=== PATIENT | female | born 1955 | race Caucasian/White ===

== ENCOUNTER 2016-10-22 19:05 | Observation (INO) | payer OTHER ==
[~2016-10-22] VITALS: Ht 170.2 cm; Wt 60.0 kg
[~2016-10-22 19:05] MED LIST: ALBU18HF INH; ALBU8.5H3 INH; ASPI-496 PO; ASPI-621 PO; ASPI325T4 PO; DOCU-30 PO; FLUT1DIS3 INH; FURO20TA3 PO; HYDR-3240 PO; IVAB5TAB PO; LEVO100T PO; LEVO100T5 PO; LISI5TAB7 PO; METO25TA35 PO; METO25TA91 PO; PRAV40TA2 PO; SPIR25TA PO; SPIR25TA3 PO; TIOT18CA INH; TIOT4MIS3 INH; VALA1000 PO; VICODIN PO; Vicodin
[2016-10-22 20:09] LABS: BLOOD UREA NITROGEN 12 mg/dL (7-18)
[2016-10-22 20:55] LABS: ASPARTATE AMINO TRANSFERASE 14 U/L (15-37)
[2016-10-22 20:57] LABS: IS PT STATUS REG ER OR PRE ER? YES
[2016-10-22] MEDS ORDERED: SODIUM CHLORIDE 0.9% 1,000ML IVBOLUS ONE (22:00)
[2016-10-23] MEDS ORDERED: TIOT4MIS5 INH (00:27)
[2016-10-23] MEDS ORDERED: FLUT1DIS3 INH (00:29)
[2016-10-23] MEDS ORDERED: SULF1TAB24 PO (00:31)
[2016-10-23] MEDS ORDERED: IVAB7.5T PO (00:34)
[2016-10-23] MEDS ORDERED: ASPI-496 PO (00:36)
[2016-10-23] MEDS ORDERED: SPIR25TA3 PO (00:42)
[2016-10-23 01:09] VITALS: BP 126/73
[2016-10-23] MEDS ORDERED: POLYETHYLENE GLYCOL 17 GM PACKET PO PRN (01:30)
[2016-10-23] MEDS ORDERED: hydrALAzine 20 MG/ML, 1ML IVPush PRN (01:30)
[2016-10-23] MEDS ORDERED: DOCUSATE 100 MG CAPSULE PO PRN (01:30)
[2016-10-23] MEDS ORDERED: ONDANSETRON ODT 4 MG PO PRN (01:30)
[2016-10-23] MEDS ORDERED: TRAZODONE 50MG TABLET PO PRN (01:30)
[2016-10-23] MEDS ORDERED: BISACODYL 10 MG SUPP PR PRN (01:30)
[2016-10-23] MEDS ORDERED: ACETAMINOPHEN 325 MG TABLET PO PRN (01:30)
[2016-10-23] MEDS: SODIUM CHLORIDE 0.9% 1,000 ML IV SCH ×2 (01:54→11:12)
[2016-10-23] MEDS: HEPARIN 5,000 UNITS/ML, 1ML SQ SCH ×2 (01:54→08:41)
[2016-10-23 02:00] VITALS: BP 123/83
[2016-10-23] MEDS ORDERED: METOPROLOL SUCCINATE 25 MG TAB.ER.24H PO PRN (02:00)
[2016-10-23] MEDS ORDERED: LISINOPRIL 5 MG TABLET PO PRN (02:00)
[2016-10-23 02:37] LABS: BLOOD UREA NITROGEN 10 mg/dL (7-18)
[2016-10-23 02:42] LABS: IS PT STATUS REG ER OR PRE ER? NO
[2016-10-23] MEDS ORDERED: LEVOTHYROXINE 100 MCG TABLET PO SCH (06:00)
[2016-10-23 07:30] VITALS: BP 107/67
[2016-10-23 08:47] LABS: IS PT STATUS REG ER OR PRE ER? NO
[2016-10-23] MEDS ORDERED: IVABRADINE HCL PO SCH (09:00)
[2016-10-23] MEDS ORDERED: ASPIRIN 81 MG TABLET EC PO SCH (09:00)
[2016-10-23] MEDS ORDERED: Tiotropium Bromide (Spiriva Respimat) INH SCH (09:00)
[2016-10-23] MEDS ORDERED: SALMETEROL INH SCH (09:00)
[2016-10-23] MEDS ORDERED: FLUTICASONE INH SCH (09:00)
[2016-10-23] MEDS ORDERED: SPIRONOLACTONE 25 MG TABLET PO SCH (09:00)
[2016-10-23] MEDS ORDERED: SULFAMETH./TRIMETHOPRIM DS 800MG/160MG TABLET PO SCH (09:00)
[2016-10-23] MEDS ORDERED: PRAVASTATIN 40 MG TABLET PO SCH (21:00)
== END 2016-10-23 15:05 | disposition home or self-care (01) ==
LOC: ED 20:32 → EDIP 22:03 → INTOOBSV 22:03 → 5SO 10-23 00:16 → DCLOUNGE 10-23 14:34
PROVIDERS: ADMIT Internal Medicine; ATTEND Internal Medicine
DX: R07.89 Other chest pain (principal); N39.0 Urinary tract infection, site not specified; D72.828 Other elevated white blood cell count; R79.89 Other specified abnormal findings of blood chemistry; J44.9 Chronic obstructive pulmonary disease, unspecified; E78.5 Hyperlipidemia, unspecified; E03.9 Hypothyroidism, unspecified; I50.22 Chronic systolic (congestive) heart failure; I27.2 Other secondary pulmonary hypertension; Z99.81 Dependence on supplemental oxygen; Z95.0 Presence of cardiac pacemaker; Z90.710 Acquired absence of both cervix and uterus
CPT/HCPCS: 36415; 71010; 80048; 80053; 81001; 83880; 84439; 84443; 84484; 85025; 85610; 85730; 87086; 93005; 96360; 96361; 96372; 99285; G0378; J1644; J7030

== ENCOUNTER → 2017-12-10 | Outpatient (CLI) | payer OTHER ==
[~2017-12-10] MED LIST changes: -ALBU8.5H3 INH; +ALBU8.5H8 INH; +ASPI325T17 PO; -ASPI325T4 PO; +DOCU-131 PO; -DOCU-30 PO; +IVAB7.5T PO; -SPIR25TA3 PO; +SPIR25TA5 PO; +SULF1TAB24 PO; +TIOT4MIS5 INH
== END | disposition home or self-care (01) ==
LOC: CFH 15:01
PROVIDERS: ATTEND Internal Medicine Cardiovascular Disease
DX: I08.1 Rheumatic disorders of both mitral and tricuspid valves (principal); I42.9 Cardiomyopathy, unspecified; E78.5 Hyperlipidemia, unspecified; I10 Essential (primary) hypertension; J44.9 Chronic obstructive pulmonary disease, unspecified; Z87.891 Personal history of nicotine dependence
CPT/HCPCS: 93306

== ENCOUNTER 2018-03-06 21:09 | Emergency (ER) | payer OTHER ==
[~2018-03-06] VITALS: Ht 170.2 cm; Wt 59.3 kg
[2018-03-06] MEDS ORDERED: ALBUTEROL/IPRATROPIUM 2.5MG/0.5MG, 3 ML ONE (21:51)
[2018-03-06] MEDS ORDERED: ALBUTEROL/IPRATROPIUM 2.5MG/0.5MG, 3 ML NPPB ONE (22:00)
[2018-03-06 22:01] LABS: BASOPHILS # (AUTO) 0.03 x10^3/uL (0-0.1); BASOPHILS % (AUTO) 0 % (0-1); EOSINOPHILS # (AUTO) 0.28 x10^3/uL (0-0.4); EOSINOPHILS % (AUTO) 2 % (1-7); LYMPHOCYTES # (AUTO) 0.88 x10^3/uL (1-3.4); LYMPHOCYTES % (AUTO) 5 % (22-44); MD NO; MEAN CORPUSCULAR HEMOGLOBIN 28.8 pg (27.0-34.8); MEAN CORPUSCULAR HGB CONC 33.4 g/dL (32.4-35.8); MEAN CORPUSCULAR VOLUME 86.1 fL (80-100); MEAN PLATELET VOLUME 7.6 fL (7.4-10.4); MONOCYTES # (AUTO) 1.35 x10^3/uL (0.2-0.8); MONOCYTES % (AUTO) 8 % (2-9); NEUTROPHILS # (AUTO) 13.72 x10^3/uL (1.8-6.8); NEUTROPHILS % (AUTO) 84 % (42-75); PLATELET COUNT 355 x10^3/uL (130-400); RED BLOOD COUNT 4.86 x10^6/uL (3.82-5.3); RED CELL DISTRIBUTION WIDTH 13.6 % (9.6-15.2)
[2018-03-06 22:14] LABS: ALBUMIN 3.6 g/dL (3.4-5.0); ANION GAP 11 mmol/L (5-15); CHLORIDE 103 mmol/L (98-107); CREATININE 1.01 mg/dL (0.55-1.02)
[2018-03-06 22:18] LABS: TROPONIN I < 0.015 ng/mL (0.000-0.045)
[2018-03-06 23:25] VITALS: BP 112/74
== END 2018-03-06 23:27 | disposition home or self-care (01) ==
LOC: ED 22:09
DX: J44.1 Chronic obstructive pulmonary disease with (acute) exacerbation (principal); E78.5 Hyperlipidemia, unspecified; I50.9 Heart failure, unspecified; I11.0 Hypertensive heart disease with heart failure; Z87.891 Personal history of nicotine dependence
CPT/HCPCS: 36415; 71045; 80048; 82040; 83880; 84484; 85025; 93005; 94640; 99285; J7512; J7620

== ENCOUNTER 2018-03-17 19:38 | Emergency (ER) | payer OTHER ==
[~2018-03-17] VITALS: Ht 170.2 cm; Wt 56.8 kg
[2018-03-17] MEDS ORDERED: ONDANSETRON 2MG/ML, 2ML ONE (20:26)
[2018-03-17] MEDS ORDERED: ONDANSETRON 2MG/ML, 2ML IVPush ONE (20:30)
[2018-03-17] MEDS ORDERED: SODIUM CHLORIDE FLUSH 10ML SYR IVF ONE (20:30)
[2018-03-17 21:15] LABS: BASOPHILS # (AUTO) 0.01 x10^3/uL (0-0.1); BASOPHILS % (AUTO) 0 % (0-1); EOSINOPHILS % (AUTO) 0 % (1-7); LYMPHOCYTES # (AUTO) 0.19 x10^3/uL (1-3.4); LYMPHOCYTES % (AUTO) 2 % (22-44); MD NO; MEAN CORPUSCULAR HEMOGLOBIN 28.7 pg (27.0-34.8); MEAN CORPUSCULAR HGB CONC 33.5 g/dL (32.4-35.8); MEAN CORPUSCULAR VOLUME 85.6 fL (80-100); MEAN PLATELET VOLUME 8.1 fL (7.4-10.4); MONOCYTES # (AUTO) 0.62 x10^3/uL (0.2-0.8); MONOCYTES % (AUTO) 6 % (2-9); NEUTROPHILS # (AUTO) 10.25 x10^3/uL (1.8-6.8); NEUTROPHILS % (AUTO) 93 % (42-75); PLATELET COUNT 251 x10^3/uL (130-400); RED BLOOD COUNT 5.19 x10^6/uL (3.82-5.3); RED CELL DISTRIBUTION WIDTH 13.4 % (9.6-15.2)
[2018-03-17 21:24] LABS: ALBUMIN 3.1 g/dL (3.4-5.0); ANION GAP 8 mmol/L (5-15); CALCIUM 8.4 mg/dL (8.5-10.1); CHLORIDE 101 mmol/L (98-107); CREATININE 0.71 mg/dL (0.55-1.02)
[2018-03-17 21:28] LABS: TROPONIN I < 0.015 ng/mL (0.000-0.045)
[2018-03-17 21:48] VITALS: BP 114/48
[2018-03-17] MEDS ORDERED: KETOROLAC 30 MG/1 ML ONE (21:49)
[2018-03-17] MEDS ORDERED: KETOROLAC 30 MG/1 ML IVPush ONE (22:00)
[2018-03-17] MEDS ORDERED: IBUPROFEN 200 MG TABLET ONE ×2 (22:17→22:20)
[2018-03-17] MEDS ORDERED: IBUPROFEN 200 MG TABLET PO ONE (22:30)
== END 2018-03-17 22:27 | disposition home or self-care (01) ==
LOC: ED 21:26
DX: B34.9 Viral infection, unspecified (principal); J44.9 Chronic obstructive pulmonary disease, unspecified; I50.9 Heart failure, unspecified; I11.0 Hypertensive heart disease with heart failure
CPT/HCPCS: 36415; 71045; 80048; 82040; 83605; 83880; 84484; 85025; 93005; 96374; 96375; 99285; J1885; J2405

== ENCOUNTER 2019-03-04 09:14 | Outpatient (CLI) | payer OTHER ==
[~2019-03-04 09:14] MED LIST changes: -ASPI-621 PO; +ASPI81TA45 PO
== END 2019-03-04 23:59 | disposition home or self-care (01) ==
LOC: CFH 09:14
PROVIDERS: ATTEND Nurse Practitioner Family
DX: I34.0 Nonrheumatic mitral (valve) insufficiency (principal); J44.9 Chronic obstructive pulmonary disease, unspecified; I50.9 Heart failure, unspecified; I48.91 Unspecified atrial fibrillation
CPT/HCPCS: 93306

== ENCOUNTER 2019-03-31 18:41 | Emergency (ER) | payer OTHER ==
[~2019-03-31] VITALS: Ht 170.2 cm; Wt 72.7 kg
--- NOTE | 2019-03-31 19:28 | NUR ---
PT. C/O COPD EXACERBATION. USED ALBUTEROL TX 1 HOUR AGO AND TOOK 1 4MG METHYLPREDNISOLONE STEROID TABLET (4MG) AND STATES FEELING A LITTLE BETTER NOW. DENIES ANY CP OR DIZZINESS. STATES HX OF CHF. HAS PACEMAKER. USING 2.5L O2 VIA NC FROM HOME AT THIS TIME. STATES USUALLY ONLY USES O2 AT NIGHT. LUNGS SOUNDS QUIET/DEMINISHED TO BASES. 4 WORD SENTENCES. DENIES COUGH/CHILLS NO SWELLING NOTED TO LEGS (REPORTS CHF REPORTEDLY MARKEDLY IMPROVED AT [id number] LAST WEEK ( EF TO 60%) PLACED ON GERIATRIC NURSING ASSISTANT. AFTERD DISCUSSION WITH PROVIDER TO AVOID PIV/LAB TO PERFORM VENIPUNCTURE/CXR
[2019-03-31] MEDS ORDERED: methylPREDNISolone SOD SUCC 125 MG/2 ML IV ONE (19:30)
[2019-03-31] MEDS ORDERED: ALBUTEROL/IPRATROPIUM 2.5MG/0.5MG, 3 ML NPPB SCH (19:30)
[2019-03-31] MEDS ORDERED: SODIUM CHLORIDE FLUSH 10ML SYR IVF ONE (19:30)
[2019-03-31] MEDS ORDERED: ALBUTEROL/IPRATROPIUM 2.5MG/0.5MG, 3 ML ONE (19:41)
[2019-03-31 19:45] LABS: BASOPHILS # (AUTO) 0.07 x10^3/uL (0-0.1); BASOPHILS % (AUTO) 1 % (0-1); EOSINOPHILS # (AUTO) 0.26 x10^3/uL (0-0.4); EOSINOPHILS % (AUTO) 3 % (1-7); LYMPHOCYTES # (AUTO) 1.05 x10^3/uL (1-3.4); LYMPHOCYTES % (AUTO) 12 % (22-44); MD NO; MEAN CORPUSCULAR HEMOGLOBIN 29.2 pg (27.0-34.8); MEAN CORPUSCULAR HGB CONC 32.4 g/dL (32.4-35.8); MEAN CORPUSCULAR VOLUME 90.2 fL (80-100); MEAN PLATELET VOLUME 7.7 fL (7.4-10.4); MONOCYTES % (AUTO) 11 % (2-9); NEUTROPHILS # (AUTO) 6.22 x10^3/uL (1.8-6.8); NEUTROPHILS % (AUTO) 73 % (42-75); PLATELET COUNT 307 x10^3/uL (130-400); RED BLOOD COUNT 5.06 x10^6/uL (3.82-5.3); RED CELL DISTRIBUTION WIDTH 13.8 % (9.6-15.2)
--- NOTE | 2019-03-31 19:50 | NUR ---
RT AT BEDSIDE
[2019-03-31 19:56] LABS: ALBUMIN 3.9 g/dL (3.4-5.0); ANION GAP 3 mmol/L (5-15); CALCIUM 9.3 mg/dL (8.5-10.1); CHLORIDE 104 mmol/L (98-107); CREATININE 0.89 mg/dL (0.55-1.02)
[2019-03-31 20:00] LABS: TROPONIN I < 0.015 ng/mL (0.000-0.045)
--- NOTE | 2019-03-31 20:09 | NUR ---
MEDICATED PER [facility] POST BREATHING TREATMENT PATIENT REPORTS BREATHING IMPROVED FROM 11/17 TO 08/18 95% ON 2.5 LITERS (DOWN FROM 3L)
[2019-03-31 20:12] VITALS: BP 134/57
== END 2019-03-31 20:43 | disposition home or self-care (01) ==
LOC: ED 19:28
DX: J44.1 Chronic obstructive pulmonary disease with (acute) exacerbation (principal); I11.0 Hypertensive heart disease with heart failure; I50.9 Heart failure, unspecified; E78.00 Pure hypercholesterolemia, unspecified; E78.5 Hyperlipidemia, unspecified; I42.9 Cardiomyopathy, unspecified; Z87.891 Personal history of nicotine dependence; Z90.710 Acquired absence of both cervix and uterus
CPT/HCPCS: 36415; 71046; 80048; 82040; 83880; 84484; 85025; 93005; 94640; 99284; J7512; J7620

== ENCOUNTER → 2020-07-04 | Outpatient (CLI) | payer OTHER ==
[~2020-07-04] MED LIST changes: +HYDR-1067 PO; -HYDR-3240 PO; -VALA1000 PO; +VALA10007 PO
== END | disposition home or self-care (01) ==
LOC: CFH 13:07
PROVIDERS: ATTEND Internal Medicine Cardiovascular Disease
DX: I08.1 Rheumatic disorders of both mitral and tricuspid valves (principal); I42.9 Cardiomyopathy, unspecified
CPT/HCPCS: 93306

== ENCOUNTER → 2020-09-04 | Outpatient (CLI) | payer OTHER ==
[~2020-09-04] MED LIST changes: -HYDR-1067 PO; +HYDR-2214 PO; +LEVO88TA4 PO; +SULF-23 PO; -SULF1TAB24 PO
[2020-09-04 14:10] LABS: ALANINE AMINOTRANSFERASE 31 U/L (12-78); ALBUMIN 4.1 g/dL (3.4-5.0); ANION GAP 5 mmol/L (5-15); CALCIUM 9.9 mg/dL (8.5-10.1); CHLORIDE 102 mmol/L (98-107); CREATININE 0.87 mg/dL (0.55-1.02)
[2020-09-04 14:12] LABS: ALKALINE PHOSPHATASE 62 U/L (45-117); BILIRUBIN,TOTAL 0.7 mg/dL (0.2-1.0); TOTAL PROTEIN 7.9 g/dL (6.4-8.2)
== END | disposition home or self-care (01) ==
LOC: STAR 12:52
PROVIDERS: ATTEND Internal Medicine Gastroenterology
DX: Z01.818 Encounter for other preprocedural examination (principal); I49.3 Ventricular premature depolarization; R94.31 Abnormal electrocardiogram [ECG] [EKG]; Z84.89 Family history of other specified conditions; Z20.822 Contact with and (suspected) exposure to COVID-19
CPT/HCPCS: 36415; 80053; 93005; U0003

== ENCOUNTER 2020-09-10 05:40 | Day surgery (SDC) | payer OTHER ==
[~2020-09-10] VITALS: Ht 170.2 cm; Wt 75.9 kg
[2020-09-10] MEDS ORDERED: CHLORHEXIDINE 15 ML UDC ONE (06:09)
[2020-09-10 06:26] VITALS: BP 136/83
[2020-09-10] MEDS ORDERED: CHLORHEXIDINE 15 ML UDC PO ONE (06:30)
[2020-09-10] MEDS ORDERED: LACTATED RINGERS 1,000 ML IV SCH (06:30)
[2020-09-10] MEDS ORDERED: LIDOCAINE-MPF 1%, 2ML ONE (06:38)
[2020-09-10] MEDS ORDERED: LIDOCAINE-MPF 1%, 2ML INFIL ONE (07:00)
[2020-09-10] MEDS ORDERED: PROPOFOL 10 MG/ML, 20ML ONE ×2 (07:13)
== END 2020-09-10 09:45 | disposition home or self-care (01) ==
LOC: OUT 05:40
PROVIDERS: ATTEND Internal Medicine Gastroenterology
DX: Z12.11 Encounter for screening for malignant neoplasm of colon (principal); K21.9 Gastro-esophageal reflux disease without esophagitis; K44.9 Diaphragmatic hernia without obstruction or gangrene; K22.10 Ulcer of esophagus without bleeding; K57.30 Diverticulosis of large intestine without perforation or abscess without bleeding; K64.4 Residual hemorrhoidal skin tags; E03.9 Hypothyroidism, unspecified; I11.0 Hypertensive heart disease with heart failure; I50.9 Heart failure, unspecified; J44.9 Chronic obstructive pulmonary disease, unspecified; Z79.82 Long term (current) use of aspirin; Z79.890 Hormone replacement therapy; Z79.899 Other long term (current) drug therapy; Z88.0 Allergy status to penicillin
CPT/HCPCS: 43239; 45378; 88305; J2704; J7120

== ENCOUNTER → 2020-11-08 | Outpatient (CLI) | payer OTHER | END | disposition home or self-care (01) | LOC: CFH 11:59 | PROVIDERS: ATTEND Nurse Practitioner Family | DX: Z12.2 Encounter for screening for malignant neoplasm of respiratory organs (principal); J98.4 Other disorders of lung; K44.9 Diaphragmatic hernia without obstruction or gangrene; Z87.891 Personal history of nicotine dependence | CPT/HCPCS: 71271 ==

== ENCOUNTER 2020-12-09 08:04 | Observation (INO) | payer OTHER ==
[~2020-12-09] VITALS: Ht 170.2 cm; Wt 87.0 kg
--- NOTE | 2020-12-09 08:43 | NUR ---
PT. PRESENTS TO THE ED TODAY WITH C/O SOB. PT. HAD A POWER OUTAGE, ANXIETY AND A WELL CHECK. SHE REPORTS NOT FEELING WELL TODAY. PT. IS A & O X 4 WITH A GCS OF 15. 12 LEAD EKG WAS DONE IN TRIAGE. PCXR IS BEING DONE. PT.'S LUNGS ARE CTA THROUGHOUT. S1 S2 NOTED WITHOUT MURMURS, RUBS OR GALLOPS. PT.'S ABD. IS SOFT AND ROUND WITH BS + X 4 QUADS. IV ACCESS ESTABLISHED. PT. HAS THE CP MONITOR IN PLACE. CAP REFILL IS BRISK, LESS THAN 2 SECONDS. SIDERAILS REMAIN UP X 2 WITH THE CALL LIGHT IN PLACE.
[2020-12-09] MEDS ORDERED: HYDROmorphone 1 MG/ML, 1ML INJ IV ONE (09:00)
[2020-12-09] MEDS ORDERED: SODIUM CHLORIDE FLUSH 10ML SYR IVF ONE (09:00)
[2020-12-09] MEDS ORDERED: HYDROmorphone 2 MG/ML, 1ML ONE (09:05)
--- NOTE | 2020-12-09 09:10 | NUR ---
PT. WAS MEDICATED FOR PAIN ORDERED. LABS DRAWN AND SENT. PT. IS RESTING WITH HER DAUGHTER AT THE BEDSIDE.
--- NOTE | 2020-12-09 09:12 | NUR ---
PT. REPORTS RELIEF FROM PAIN MEDS.
[2020-12-09 09:20] LABS: BASOPHILS % (AUTO) 1 % (0-1); EOSINOPHILS % (AUTO) 1 % (1-7); LYMPHOCYTES % (AUTO) 6 % (22-44); MEAN CORPUSCULAR HEMOGLOBIN 29.8 pg (27.0-34.8); MEAN CORPUSCULAR HGB CONC 34.1 g/dL (32.4-35.8); MEAN PLATELET VOLUME 7.6 fL (7.4-10.4); MONOCYTES % (AUTO) 7 % (2-9); NEUTROPHILS % (AUTO) 85 % (42-75); PLATELET COUNT 310 x10^3/uL (130-400); RED BLOOD COUNT 4.97 x10^6/uL (3.82-5.3); RED CELL DISTRIBUTION WIDTH 13.5 % (9.6-15.2)
[2020-12-09 09:31] LABS: ALANINE AMINOTRANSFERASE 31 U/L (12-78); ALBUMIN 3.9 g/dL (3.4-5.0); ANION GAP 3 mmol/L (5-15); CALCIUM 9.5 mg/dL (8.5-10.1); CHLORIDE 103 mmol/L (98-107)
[2020-12-09 09:36] LABS: ALKALINE PHOSPHATASE 63 U/L (45-117); BILIRUBIN,TOTAL 0.8 mg/dL (0.2-1.0); CREATININE 0.84 mg/dL (0.55-1.02); TOTAL PROTEIN 7.9 g/dL (6.4-8.2); TROPONIN I < 0.015 ng/mL (0.000-0.045)
--- NOTE | 2020-12-09 09:48 | NUR ---
PT. REMAINS MONITORED. VSS. PT.'S SIDERAILS ARE UP X 2, CALL LIGHT IN PLACE.
--- NOTE | 2020-12-09 10:45 | NUR ---
PATIENT SITTING IN GURNEY, FEELING NAUSEATED, NAUSEA MEDS REQUESTED FROM [facility]. DAUGHTER AT BEDSIDE. PATIENT CONNECTED TO MONITOR, VSS, CALL LIGHT WITHIN REACH.
[2020-12-09] MEDS ORDERED: ONDANSETRON 2MG/ML, 2ML ONE (10:55)
[2020-12-09] MEDS ORDERED: ONDANSETRON 2MG/ML, 2ML IVPush ONE (11:00)
--- NOTE | 2020-12-09 12:05 | NUR ---
PT. REPORTS RELIEF FROM [facility]. SHE IS RESTING WITHOUT CONCERNS. VSS. SIDERAILS REAMAIN UP X 2 WITH THE CALL LIGHT IN PLACE.
--- NOTE | 2020-12-09 12:20 | NUR ---
NO CHANGES AT THIS TIME.
--- NOTE | 2020-12-09 13:12 | NUR ---
RECEIVED REPORT FROM [facility]. PT UPRIGHT ON GURNEY AWAKE & COMFORTABLE, RESPONDS APPROP TO STAFF, NAD, NO NEEDS AT THIS TIME, FAMILY AT BS, CALL LIGHT WITHIN REACH.
[2020-12-09] MEDS ORDERED: OMEP20TA62 PO (13:19)
--- NOTE | 2020-12-09 13:55 | NUR ---
Pt to be admitted to [facility], room 505. Report called to MADY.
--- NOTE | 2020-12-09 13:58 | NUR ---
PT AMBULATED TO WITH DAUGHTER, BACK TO [facility] AWAKE & COMFORTABLE, RESPONDS APPROP TO STAFF, NAD, NO NEEDS AT THIS TIME, AT BS, CALL LIGHT WITHIN REACH.
[2020-12-09] MEDS ORDERED: LISINOPRIL 5 MG TABLET PO PRN (14:30)
[2020-12-09] MEDS ORDERED: ACETAMINOPHEN 325 MG TABLET PO PRN (14:30)
[2020-12-09] MEDS ORDERED: METOPROLOL SUCCINATE 25 MG TAB.ER.24H PO PRN (14:30)
[2020-12-09] MEDS ORDERED: POLYETHYLENE GLYCOL 17 GM PACKET PO PRN (14:30)
[2020-12-09] MEDS ORDERED: DOCUSATE 100 MG CAPSULE PO PRN (14:30)
[2020-12-09] MEDS ORDERED: OXYcodone/APAP 5/325MG TABLET PO PRN (14:30)
[2020-12-09 14:37] VITALS: BP 130/76
[2020-12-09] MEDS: HEPARIN 5,000 UNITS/ML, 1ML SQ SCH (16:09)
[2020-12-09 18:18] LABS: TROPONIN I < 0.015 ng/mL (0.000-0.045)
[2020-12-09] MEDS: BUDESONIDE 0.5 MG/2 ML INHA INH SCH (18:28)
[2020-12-09] MEDS ORDERED: ALBUTEROL/IPRATROPIUM 2.5MG/0.5MG, 3 ML NPPB SCH (18:30)
[2020-12-09] MEDS ORDERED: ALBUTEROL HFA 90 MCG/SPRAY INH PRN (18:30)
[2020-12-09] MEDS: IPRATROPIUM 0.5 MG/2.5 ML INHA NPPB SCH (18:30)
[2020-12-09] MEDS ORDERED: ALBUTEROL SULFATE 2.5 MG/3 ML NPPB PRN ×3 (19:30)
[2020-12-09 20:00] VITALS: BP 142/78
[2020-12-09] MEDS: SODIUM CHLORIDE FLUSH 10ML SYR IVF SCH (20:25)
[2020-12-09] MEDS ORDERED: PRAVASTATIN 40 MG TABLET PO SCH (21:00)
[2020-12-09] MEDS ORDERED: IVABRADINE HCL PO SCH (21:00)
[2020-12-09] MEDS ORDERED: FLUTICASONE FUROATE 200MCG/INH INH SCH (21:00)
[2020-12-09] MEDS ORDERED: SALMETEROL INH 50MCG/INH DISK.W.DEV INH SCH ×2 (21:00)
[2020-12-10] MEDS: HEPARIN 5,000 UNITS/ML, 1ML SQ SCH ×2 (00:11→09:04)
[2020-12-10 00:16] VITALS: BP 124/82
[2020-12-10 00:39] LABS: TROPONIN I < 0.015 ng/mL (0.000-0.045)
[2020-12-10] MEDS: IPRATROPIUM 0.5 MG/2.5 ML INHA NPPB SCH ×2 (02:12→07:30)
[2020-12-10] MEDS ORDERED: LEVOTHYROXINE 88 MCG TABLET PO SCH (06:00)
[2020-12-10 06:03] LABS: BASOPHILS % (AUTO) 1 % (0-1); EOSINOPHILS % (AUTO) 5 % (1-7); LYMPHOCYTES % (AUTO) 17 % (22-44); MEAN CORPUSCULAR HEMOGLOBIN 29.5 pg (27.0-34.8); MEAN CORPUSCULAR HGB CONC 33.4 g/dL (32.4-35.8); MONOCYTES % (AUTO) 13 % (2-9); NEUTROPHILS % (AUTO) 65 % (42-75); PLATELET COUNT 333 x10^3/uL (130-400); RED BLOOD COUNT 4.65 x10^6/uL (3.82-5.3); RED CELL DISTRIBUTION WIDTH 13.6 % (9.6-15.2)
[2020-12-10 06:22] LABS: ANION GAP 3 mmol/L (5-15); CALCIUM 9.2 mg/dL (8.5-10.1); CHLORIDE 99 mmol/L (98-107)
[2020-12-10 06:25] LABS: CHOLESTEROL, TOTAL 176 mg/dL (140-239); CREATININE 0.88 mg/dL (0.55-1.02); HDL CHOL % 33 % (28-40); HDL CHOLESTEROL (DIRECT) 58 mg/dL (40-60); LDL CHOLESTEROL,CALCULATED 89 mg/dL (54-169); LDL/HDL RATIO 1.5 (0.5-3.0); TRIGLYCERIDES 143 mg/dL (50-200); VLDL CHOLESTEROL 29 mg/dL (0-25)
[2020-12-10 07:16] VITALS: BP 105/66
[2020-12-10] MEDS: BUDESONIDE 0.5 MG/2 ML INHA INH SCH (07:30)
[2020-12-10] MEDS: SODIUM CHLORIDE FLUSH 10ML SYR IVF SCH (09:00)
[2020-12-10] MEDS ORDERED: PANTOPRAZOLE 40MG TABLET PO SCH (09:00)
[2020-12-10] MEDS ORDERED: ASPIRIN 81 MG TABLET EC PO SCH (09:00)
[2020-12-10] MEDS ORDERED: SPIRONOLACTONE 25 MG TABLET PO SCH (09:00)
[2020-12-10] MEDS ORDERED: IVABRADINE HCL 7.5 MG HOMEMEDPO SCH (09:00)
[2020-12-10] MEDS ORDERED: TIOTROPIUM BROMIDE INH SCH (09:00)
== END 2020-12-10 13:02 | disposition home or self-care (01) ==
LOC: ED 09:22 → INTOOBSV 13:04 → EDIP 13:04 → SUATTDRO 14:06 → 5SO 14:28
PROVIDERS: ADMIT Hospitalist; ATTEND Internal Medicine
DX: R07.89 Other chest pain (principal); I11.0 Hypertensive heart disease with heart failure; I50.9 Heart failure, unspecified; K76.0 Fatty (change of) liver, not elsewhere classified; J44.9 Chronic obstructive pulmonary disease, unspecified; J96.91 Respiratory failure, unspecified with hypoxia; E03.9 Hypothyroidism, unspecified; E78.00 Pure hypercholesterolemia, unspecified; I42.9 Cardiomyopathy, unspecified; E78.5 Hyperlipidemia, unspecified; Z90.710 Acquired absence of both cervix and uterus; Z88.0 Allergy status to penicillin; Z79.899 Other long term (current) drug therapy; Z79.82 Long term (current) use of aspirin; Z99.81 Dependence on supplemental oxygen; Z86.16 Personal history of COVID-19
CPT/HCPCS: 36415; 71045; 76705; 80048; 80053; 80061; 83036; 83605; 83690; 83735; 83880; 84484; 85025; 85379; 87040; 93005; 94640; 96372; 96374; 96375; 99285; G0378; J1170; J1644; J2405; J7626; J7644